=== PATIENT | male | born 1985 | race African-American/Black ===

== ENCOUNTER 2017-08-06 00:39 | Emergency (ER) | payer OTHER ==
--- NOTE | 2017-08-06 01:04 | PD ---
HPI Chief Complaint: med clearance Time Seen by Provider: 01:01 Travel History International Travel<30 days: No Contact w/Intl Traveler<30days: No Traveled to known affect area: No History of Present Illness HPI 32-year-old male presents to the emergency department for medical clearance. Patient presents in law enforcement custody. He states that he struck the right side of his head getting out of the police car. He did not lose consciousness. This occurred about 2 hours ago. He has not been nauseous or vomiting. Denies any focal deficits or weakness. States he is sore where he struck his head. He was sent here for medical clearance. [facility] Past Medical History Medical History: Denies Significant Hx Social History Tobacco Use: No Allergies-Medications (Allergen,Severity, Reaction): Coded Allergies: No Known Allergies (Unverified , 08/06/17) Review of Systems Except as stated in HPI: all other systems reviewed are Neg Physical Exam Narrative GENERAL: Well-nourished male patient, in no acute distress. SKIN: Focused skin assessment warm/dry. HEAD: Mild tenderness elicited to palpation of the right parietal scalp. No deformity. No crepitus. Normocephalic. EYES: Pupils equal and round. No scleral icterus. No injection or drainage. EOMI ENT: No nasal bleeding or discharge. Mucous membranes pink and moist. NECK: Trachea midline. No JVD. CARDIOVASCULAR: Regular rate and rhythm. No murmur appreciated. RESPIRATORY: No accessory muscle use. Clear to auscultation. Breath sounds equal bilaterally. GASTROINTESTINAL: Abdomen soft, non-tender, nondistended. Hepatic and splenic margins not palpable. MUSCULOSKELETAL: No obvious deformities. No clubbing. No cyanosis. No edema. 5+ strength equal bilateral all extremities. NEUROLOGICAL: Awake and alert. No obvious cranial nerve deficits. Motor grossly within normal limits. Normal speech. Data Data Last Documented VS Vital Signs Date Time Temp Pulse Resp B/P (MAP) Pulse Ox O2 Delivery O2 Flow Rate FiO2 08/06/17 01:07 85 18 138/70 (92) 98 Orders Orders Ketorolac Inj (Toradol Inj) (08/06/17 01:15) Ed Discharge Order (08/06/17 01:02) [facility] Medical Decision Making Medical Screen Exam Complete: Yes Emergency Medical Condition: Yes Medical Record Reviewed: Yes Differential Diagnosis Minor head injury versus scalp contusion versus fracture versus normal exam Narrative Course 32-year-old male presents to the emergency department for evaluation and medical clearance to return to custodial. Patient struck his right parietal scalp on the police car getting out of it. There is no loss of consciousness. This occurred 2 hours ago. There has been no focal deficits or weakness. Per [place] CT head rules, imaging studies will not be done at this time. Patient will be discharged in law enforcement custody at this time. Diagnosis Primary Impression: Head injury, acute, without loss of consciousness Qualified Codes: S09.90XA - Unspecified injury of head, initial encounter Referrals: Primary Care Physician Patient Instructions: Head Injury (ED) Additional Instructions: Follow up with a primary care provider Return to ED with acute worsening of symptoms Med/Other Pt SpecificInfo: No Change to Meds Disposition: [address] LAW ENFORCEMNT Condition: Stable DaraMeena BO Aug 06, 2017 01:04
[2017-08-06 01:07] VITALS: BP 138/70; PULSE 85; RESP 18; O2SAT 98
[2017-08-06] MEDS ORDERED: KETOROLAC TROMETHAMINE 60 MG/2 ML (IM) VIAL IM ONE (01:15)
== END 2017-08-06 01:29 ==
LOC: NEDAMB 00:39
DX: S09.90XA Unspecified injury of head, initial encounter (principal); W22.8XXA Striking against or struck by other objects, initial encounter; Y92.810 Car as the place of occurrence of the external cause
CPT/HCPCS: 96372; 99283; J1885